=== PATIENT | female | born 2005 | race Caucasian/White ===

== ENCOUNTER 2025-05-27 02:34 | Outpatient (CLI) | payer OTHER, SELFPAY | END 2025-05-27 02:35 | disposition home or self-care (01) | LOC: AMB 06-30 15:18 | PROVIDERS: Visit Provider Family Medicine | DX: R11.2 Nausea with vomiting, unspecified (principal); F10.129 Alcohol abuse with intoxication, unspecified | CPT/HCPCS: A0998 ==